=== PATIENT | male | born 1975 | race Caucasian/White ===

== ENCOUNTER 2016-10-01 07:51 | Emergency (ER) | payer OTHER ==
[2016-10-01 07:57] VITALS: BP 122/77; PULSE 97; RESP 15; TEMP 97.9
--- NOTE | 2016-10-01 08:26 | ED ---
General Adult HPI - General Chief complaint: Skin/Abscess/Foreign Body Stated complaint: SKIN CONDITION ON BACK AND INNER THIGHS, POSS RASH Time Seen by Provider: 10/01/16 08:10 Source: patient, RN notes reviewed Mode of arrival: ambulatory Limitations: no limitations - History of Present Illness Initial comments: Patient is a 41-year-old male who presents emergency room today with a chief complaint of rash. He does admit that he gets similar rash every winter and during summertime. Patient denies any contacts of soaps or laundry detergents. He states very itchy to his back and inner thighs. He states he typically takes a topical steroid cream which does relieve the symptoms. He denies any other complaints. States does not have any medications at home. Patient denies any recent fever, chills, shortness of breath, chest pain, back pain, abdominal pain, nausea or vomiting, numbness or tingling, dysuria or hematuria, constipation or diarrhea, headaches or visual changes, or any other complaints. - Related Data Home Medications Medication Instructions Recorded Confirmed Albuterol Inhaler [Ventolin Hfa 1 - 2 puff INHALATION Q6HR PRN 10/01/16 10/01/16 Inhaler] Albuterol Nebulized [Ventolin 2.5 mg INHALATION Q6H 10/01/16 10/01/16 Nebulized] Previous Rx's Medication Instructions Recorded Famotidine [Pepcid] 20 mg PO BID #20 tablet 10/01/16 Hydrocortisone Cream 1 applic TOPICAL TID #1 cream..g. 10/01/16 [Hydrocortisone 1% Cream] Permethrin 5% Cream [Elimite] 1 applic TOPICAL ONCE #1 tube 10/01/16 diphenhydrAMINE [Benadryl] 1 - 2 tab PO Q6HR PRN #30 capsule 10/01/16 Allergies Allergy/AdvReac Type Severity Reaction Status Date / Time onion Allergy Anaphylaxis Verified 10/01/16 07:57 Review of Systems ROS Statement: Those systems with pertinent positive or pertinent negative responses have been documented in the HPI. ROS Other: All systems not noted in ROS Statement are negative. Past Medical History Past Medical History: Asthma, Diabetes Mellitus, Skin Disorder History of Any Multi-Drug Resistant Organisms: None Reported Past Surgical History: Orthopedic Surgery Past Psychological History: No Psychological Hx Reported, Bipolar Smoking Status: Current every day smoker Past Alcohol Use History: Rare Past Drug Use History: None Reported General Exam - General Exam Comments Initial Comments: General: The patient is awake and alert, in no distress, and does not appear acutely ill. Eye: Pupils are equal, round and reactive to light, extra-ocular movements are intact. No nystagmus. There is normal conjunctiva bilaterally. No signs of icterus. Ears, nose, mouth and throat: There are moist mucous membranes and no oral lesions. Neck: The neck is supple, there is no tenderness or JVD. Cardiovascular: There is a regular rate and rhythm. No murmur, rub or gallop is appreciated. Respiratory: Lungs are clear to auscultation, respirations are non-labored, breath sounds are equal. No wheezes, stridor, rales, or rhonchi. Musculoskeletal: Normal ROM, no tenderness. Strength 5/5. Sensation intact. Pulses equal bilaterally 2+. Neurological: A&O x 3. CN II-XII intact, There are no obvious motor or sensory deficits. Coordination appears grossly intact. Speech is normal. Skin: Patient does have rash located to the inner thighs and lower back. Small red raised bumps excoriated from itching. Psychiatric: Cooperative, appropriate mood & affect, normal judgment. Limitations: no limitations Course Vital Signs 10/01/16 07:53 Temperature 97.9 F Pulse Rate 97 Respiratory 15 Rate Blood Pressure 122/77 O2 Sat by Pulse 94 L Oximetry Medical Decision Making - Medical Decision Making Was discussed about possible scabies. Patient will be given permethrin cream. He is advised used Benadryl, Pepcid, steroid cream for symptoms and there is really to continue with these. If no relief to use permethrin cream. Advised to follow up his family doctor return here to the emergency room if any symptoms increase or worsen or for any other concerns. Disposition Clinical Impression: Rash Disposition: HOME SELF-CARE Condition: Good Instructions: Acute Rash (ED) Additional Instructions: Please use medication as discussed. Please follow-up with family doctor in the next 2 days of symptoms have not improved. Please return to emergency room if the symptoms increase or worsen or for any other concerns. Prescriptions: Famotidine [Pepcid] 20 mg PO BID #20 tablet Hydrocortisone Cream [Hydrocortisone 1% Cream] 1 applic TOPICAL TID #1 cream..g. Permethrin 5% Cream [Elimite] 1 applic TOPICAL ONCE #1 tube diphenhydrAMINE [Benadryl] 1 - 2 tab PO Q6HR PRN #30 capsule PRN Reason: Allergic Reaction Time of Disposition: 08:24
== END 2016-10-01 08:45 | disposition home or self-care (01) ==
LOC: EC 07:51
DX: R21 Rash and other nonspecific skin eruption (principal); J45.909 Unspecified asthma, uncomplicated; F17.200 Nicotine dependence, unspecified, uncomplicated; Z79.899 Other long term (current) drug therapy; Z91.018 Allergy to other foods
CPT/HCPCS: 99282

== ENCOUNTER 2017-01-02 14:55 | Emergency (ER) | payer OTHER ==
[2017-01-02 15:06] VITALS: TEMP 98.3
[2017-01-02] MEDS ORDERED: SODIUM CHLORIDE 0.9% 1,000 ML IV STA ×2 (15:27)
--- NOTE | 2017-01-02 15:46 | ED ---
Psych HPI - General Chief Complaint: Psychiatric Symptoms Stated Complaint: Mental Health Time Seen by Provider: 01/02/17 15:00 Source: patient, RN notes reviewed Mode of arrival: ambulatory - History of Present Illness Initial Comments: This is a 41-year-old male with history depression who is here for evaluation for depression. He states he initially very depressed is up and eating or drinking for 6 days. He also states his blood sugars have been somewhat elevated. He denies any fevers chills nausea vomiting sweats. His other complaints. Patient also states that he has some chest discomfort to his lower sternum going to his upper abdomen. MD Complaint: feels depressed - Related Data Home Medications Medication Instructions Recorded Confirmed Albuterol Inhaler [Ventolin Hfa 1 - 2 puff INHALATION Q6HR PRN 10/01/16 01/02/17 Inhaler] Albuterol Nebulized [Ventolin 2.5 mg INHALATION Q6H 10/01/16 01/02/17 Nebulized] Sodium Chloride [[place]] 1 spray EA NOSTRIL DAILY PRN 01/02/17 01/02/17 Allergies Allergy/AdvReac Type Severity Reaction Status Date / Time onion Allergy Anaphylaxis Verified 01/02/17 15:30 Review of Systems ROS Statement: Those systems with pertinent positive or pertinent negative responses have been documented in the HPI. ROS Other: All systems not noted in ROS Statement are negative. Past Medical History Past Medical History: Asthma, Diabetes Mellitus, Skin Disorder History of Any Multi-Drug Resistant Organisms: None Reported Past Surgical History: Orthopedic Surgery Past Psychological History: No Psychological Hx Reported, Bipolar Smoking Status: Current every day smoker Past Alcohol Use History: Rare Past Drug Use History: None Reported General Exam - General Exam Comments Initial Comments: This is a well-developed well-nourished awake alert oriented 3 male Limitations: no limitations General appearance: alert, anxious Head exam: Present: atraumatic, normocephalic, normal inspection Eye exam: Present: normal appearance, PERRL, EOMI. Absent: scleral icterus, conjunctival injection, periorbital swelling ENT exam: Present: mucous membranes dry Neck exam: Present: normal inspection. Absent: tenderness, meningismus, lymphadenopathy Respiratory exam: Present: normal lung sounds bilaterally. Absent: respiratory distress, wheezes, rales, rhonchi, stridor Cardiovascular Exam: Present: regular rate, normal rhythm, normal heart sounds. Absent: systolic murmur, diastolic murmur, rubs, gallop, clicks GI/Abdominal exam: Present: soft, normal bowel sounds. Absent: distended, tenderness, guarding, rebound, rigid Extremities exam: Present: normal inspection, full ROM, normal capillary refill. Absent: tenderness, pedal edema, joint swelling, calf tenderness Back exam: Present: normal inspection Neurological exam: Present: alert, oriented X3, CN II-XII intact Psychiatric exam: Present: depressed, manic Skin exam: Present: warm, dry, intact, normal color. Absent: rash Course Vital Signs 01/02/17 01/02/17 15:02 17:42 Temperature 98.3 F 98.3 F Pulse Rate 106 H 60 Respiratory 18 20 Rate Blood Pressure 139/72 126/84 O2 Sat by Pulse 97 97 Oximetry Medical Decision Making - Medical Decision Making The patient did not want to wait any longer and wanted to leave did leave AGAINST MEDICAL ADVICE. He came in presents with depression but was not suicidal or homicidal. He was willing to accept responsibility for his exit. - Lab Data Result diagrams: 01/02/17 15:50 01/02/17 15:50 Lab Results 01/02/17 01/02/17 01/02/17 Range/Units 15:50 15:50 17:34 WBC 4.5 (3.8-10.6) k/uL RBC 5.12 (4.30-5.90) m/uL Hgb 16.5 (13.0-17.5) gm/dL Hct 47.6 (39.0-53.0) % MCV 93.1 (80.0-100.0) fL MCH 32.2 (25.0-35.0) pg MCHC 34.6 (31.0-37.0) g/dL RDW 13.4 (11.5-15.5) % Plt Count 202 (150-450) k/uL Neutrophils % 54 % Lymphocytes % 32 % Monocytes % 9 % Eosinophils % 2 % Basophils % 1 % Neutrophils # 2.4 (1.3-7.7) k/uL Lymphocytes # 1.4 (1.0-4.8) k/uL Monocytes # 0.4 (0-1.0) k/uL Eosinophils # 0.1 (0-0.7) k/uL Basophils # 0.0 (0-0.2) k/uL Sodium 142 (137-145) mmol/L Potassium 3.7 (3.5-5.1) mmol/L Chloride 107 (98-107) mmol/L Carbon Dioxide 23 (22-30) mmol/L Anion Gap 12 mmol/L BUN 13 (9-20) mg/dL Creatinine 1.22 (0.66-1.25) mg/dL Est GFR (MDRD) Af Amer >60 (>60 ml/min/1.73 sqM) Est GFR (MDRD) Non-Af >60 (>60 ml/min/1.73 sqM) Glucose 86 (74-99) mg/dL Calcium 8.7 (8.4-10.2) mg/dL Magnesium 2.5 H (1.6-2.3) mg/dL Total Bilirubin 0.9 (0.2-1.3) mg/dL AST 27 (17-59) U/L ALT 26 (21-72) U/L Alkaline Phosphatase 56 (38-126) U/L Total Protein 7.3 (6.3-8.2) g/dL Albumin 4.4 (3.5-5.0) g/dL Amylase 34 (30-110) U/L Lipase 106 (23-300) U/L Urine Opiates Screen Not Detected (NotDetected) Ur Oxycodone Screen Not Detected (NotDetected) Urine Methadone Screen Not Detected (NotDetected) Ur Propoxyphene Screen Not Detected (NotDetected) Ur Barbiturates Screen Not Detected (NotDetected) U Tricyclic Antidepress Not Detected (NotDetected) Ur Phencyclidine Scrn Not Detected (NotDetected) Ur Amphetamines Screen Not Detected (NotDetected) U Methamphetamines Scrn Not Detected (NotDetected) U Benzodiazepines Scrn Not Detected (NotDetected) Urine Cocaine Screen Not Detected (NotDetected) U Marijuana (THC) Screen Not Detected (NotDetected) Disposition Clinical Impression: Depression Disposition: Left Against Medical Advice Condition: Stable Referrals: Daniel Esquivel MD [Primary Care Provider] - 1-2 days
[2017-01-02 16:09] LABS: Basophils % (A) 1 %; CH 33.6; CHCM 36.3; Eosinophils # (A) 0.1 k/uL (0-0.7); Eosinophils % (A) 2 %; HCT 47.6 % (39.0-53.0); HDW 2.77; HGB 16.5 gm/dL (13.0-17.5); Luc % (Auto) 2; Lymphocytes # (A) 1.4 k/uL (1.0-4.8); Lymphocytes % (A) 32 %; MCH 32.2 pg (25.0-35.0); MCHC 34.6 g/dL (31.0-37.0); MCV 93.1 fL (80.0-100.0); Mean Platelet Volume 7.4; Monocytes # (A) 0.4 k/uL (0-1.0); Monocytes % (A) 9 %; Neutrophils # (A) 2.4 k/uL (1.3-7.7); Neutrophils % (A) 54 %; RBC 5.12 m/uL (4.30-5.90); RDW 13.4 % (11.5-15.5); WBC 4.5 k/uL (3.8-10.6); WBC (Perox) 4.33
[2017-01-02 16:32] LABS: ALT 26 U/L (21-72); AST 27 U/L (17-59); Alkaline Phosphatase 56 U/L (38-126); Amylase 34 U/L (30-110); Anion Gap 12 mmol/L; Blood Urea Nitrogen 13 mg/dL (9-20); Calcium 8.7 mg/dL (8.4-10.2); Carbon Dioxide 23 mmol/L (22-30); Chloride 107 mmol/L (98-107); Glucose 86 mg/dL (74-99); Magnesium 2.5 mg/dL (1.6-2.3); Non-African American GFR(MDRD) >60 (>60 ml/min/1.73 sqM); Potassium 3.7 mmol/L (3.5-5.1); Sodium 142 mmol/L (137-145); Total Bilirubin 0.9 mg/dL (0.2-1.3); Total Protein 7.3 g/dL (6.3-8.2)
[2017-01-02 17:43] VITALS: BP 126/84; PULSE 60; RESP 20
== END 2017-01-02 18:30 | disposition left against medical advice (07) ==
LOC: EC 14:55
DX: F32.9 Major depressive disorder, single episode, unspecified (principal); J45.909 Unspecified asthma, uncomplicated; F17.200 Nicotine dependence, unspecified, uncomplicated; Z53.29 Procedure and treatment not carried out because of patient's decision for other reasons; Z91.018 Allergy to other foods; Z79.899 Other long term (current) drug therapy
CPT/HCPCS: 36415; 80053; 80306; 82075; 82150; 83690; 83735; 85025; 96360; 96361; 99285

== ENCOUNTER 2017-01-02 21:34 | Inpatient (IN) | payer MEDICAID, OTHER ==
--- NOTE | 2017-01-02 23:02 | ED ---
Psych HPI - General Chief Complaint: Psychiatric Symptoms Stated Complaint: Mental Health Time Seen by Provider: 01/02/17 22:38 Source: patient Mode of arrival: ambulatory - History of Present Illness MD Complaint: feels depressed -: month(s) Associated Psychiatric Symptoms: none History of same: Yes Quality: constant Improves With: none Worsens With: none Context: significant life stressor - Related Data Home Medications Medication Instructions Recorded Confirmed Albuterol Inhaler [Ventolin Hfa 1 - 2 puff INHALATION RT-Q6H PRN 10/01/16 Inhaler] Albuterol Nebulized [Ventolin 2.5 mg INHALATION RT-Q6H 10/01/16 01/02/17 Nebulized] Sodium Chloride [[place]] 1 spray EA NOSTRIL DAILY PRN 01/02/17 01/02/17 Allergies Allergy/AdvReac Type Severity Reaction Status Date / Time onion Allergy Anaphylaxis Verified 01/02/17 22:37 Review of Systems ROS Statement: Those systems with pertinent positive or pertinent negative responses have been documented in the HPI. ROS Other: All systems not noted in ROS Statement are negative. Constitutional: Denies: fever Respiratory: Denies: cough, dyspnea Cardiovascular: Denies: chest pain, syncope Gastrointestinal: Denies: abdominal pain, vomiting, diarrhea Musculoskeletal: Denies: back pain Neurological: Denies: headache, weakness, numbness Past Medical History Past Medical History: Asthma, Diabetes Mellitus, Skin Disorder History of Any Multi-Drug Resistant Organisms: None Reported Past Surgical History: Orthopedic Surgery Past Psychological History: No Psychological Hx Reported, Bipolar Smoking Status: Current every day smoker Past Alcohol Use History: Rare Past Drug Use History: None Reported General Exam Limitations: no limitations General appearance: alert, in no apparent distress, anxious Head exam: Present: atraumatic, normocephalic ENT exam: Present: normal oropharynx Respiratory exam: Present: normal lung sounds bilaterally. Absent: respiratory distress, wheezes, rales, rhonchi, stridor Cardiovascular Exam: Present: regular rate, normal rhythm, normal heart sounds. Absent: systolic murmur, diastolic murmur, rubs, gallop GI/Abdominal exam: Present: soft. Absent: tenderness Neurological exam: Present: alert Psychiatric exam: Present: normal affect, anxious. Absent: homicidal ideation, suicidal ideation Skin exam: Present: warm, dry, intact, normal color Course Vital Signs 01/02/17 01/03/17 21:41 01:50 Temperature 97.9 F 98.2 F Pulse Rate 93 79 Respiratory 16 17 Rate Blood Pressure 115/70 120/64 O2 Sat by Pulse 95 96 Oximetry Medical Decision Making - Medical Decision Making Is a 41-year-old man who was seen here earlier for depressed mood, and then who had to leave due to a family emergency. The patient states that when he got home he was served divorce papers which has made his mood worse, and he is afraid he might hurt someone at home. Patient denies any auditory or visual hallucinations. He denies suicidal ideation. Disposition Clinical Impression: Mood disorder Disposition: ADMITTED IP TO THIS [facility] Condition: Fair
[2017-01-03] MEDS ORDERED: ACETAMINOPHEN TAB 325 MG TAB PO PRN (01:46)
[2017-01-03] MEDS ORDERED: MAG HYDROX/AL HYDROX/SIMETH 30 ML CUP PO PRN (01:46)
[2017-01-03] MEDS ORDERED: ZIPRASIDONE 20 MG VIAL IM PRN (01:46)
[2017-01-03] MEDS ORDERED: MAGNESIUM HYDROXIDE 2,400 MG/10 ML CUP PO PRN (01:46)
[2017-01-03 02:11] LABS: Appearance,Urine Clear (Clear); Bilirubin,Urine Negative (Negative); Glucose,Urine (UA) Negative (Negative); Ketones,Urine 3+ (Negative); Leukocyte Esterase,Urine Negative (Negative); Mucus,Urine Many /hpf; Nitrite,Urine Negative (Negative); Particle Count 6429; Protein,Urine 1+ (Negative); Specific Gravity,Urine 1.027 (1.001-1.035); UA Billing (MACRO vs. MICRO) MICRO; WBC,Urine 1 /hpf (0-5)
[2017-01-03] MEDS: ALBUTEROL INHALER 60 PUFF/8 GM INHALER INHALATION PRN ×4 (02:58→21:38)
[2017-01-03] MEDS: ALBUTEROL NEBULIZED 2.5 MG/3 ML INHALATION SCH ×3 (08:15→21:54)
--- NOTE | 2017-01-03 09:16 | P.HP ---
Psychiatric H&P - . H&P Date: 01/03/17 History & Physical: Allergies Allergy/AdvReac Type Severity Reaction Status Date / Time onion Allergy Anaphylaxis Verified 01/03/17 05:32 Vital Signs Temp 97.5 F L 01/03/17 02:59 Pulse 91 01/03/17 02:59 Resp 18 01/03/17 02:59 BP 119/75 01/03/17 02:59 Pulse Ox 96 01/03/17 02:59 Intake & Output 01/02/17 01/03/17 01/03/17 18:59 06:59 18:59 Weight 80.3 kg Laboratory Last Values Urine Color Yellow 01/03/17 01:32 Urine Appearance Clear (Clear) 01/03/17 01:32 Urine pH 6.0 (5.0-8.0) 01/03/17 01:32 Ur Specific [place] 1.027 (1.001-1.035) 01/03/17 01:32 Urine Protein 1+ (Negative) H 01/03/17 01:32 Urine Glucose (UA) Negative (Negative) 01/03/17 01:32 Urine Ketones 3+ (Negative) H 01/03/17 01:32 Urine Blood Negative (Negative) 01/03/17 01:32 Urine Nitrite Negative (Negative) 01/03/17 01:32 Urine Bilirubin Negative (Negative) 01/03/17 01:32 Urine Urobilinogen 2.0 mg/dL (<2.0) 01/03/17 01:32 Ur Leukocyte Esterase Negative (Negative) 01/03/17 01:32 Urine WBC 1 /hpf (0-5) 01/03/17 01:32 Hyaline Casts 1 /lpf (0-2) 01/03/17 01:32 Urine Mucus Many /hpf (None) H 01/03/17 01:32 01/03/17 08:40 DATE OF SERVICE: 01/03/2017 IDENTIFYING DATA: This patient is a 41-year-old male who was admitted to the mental health unit through ED for thoughts of hurting himself or others. HISTORY OF PRESENT ILLNESS: The patient reports that he was in the emergency room earlier in the day for dehydration states he was receiving an IV, but he had not eaten for 6 days today is a 7. States he received a text that there was an emergency that he had go home.Left the emergency room AMA, when he arrived home he received papers for divorce. He then left the house and reportedly his was a few blocks away and told him he needed to find another place to live and that she would come with him. Patient states that he was confused by this but has since been in communication with her and believes that she is being forced into a divorce by Gene. Patient reports that he and his moved up to be close to his mother, he contacted a friend who said he could rent a room from them which they did. Everything was fine until the shellfish harvester of the house allowed her brother(Doroteo) to move in and that's when the problems began. Patient says that Gene is buying his objects like a phone, a braid maker and that is why his agreed to the divorce proceedings. Patient reports that he has been depressed for approximately 2-3 weeks sitting in the room in the dark not eating for the last week. Patient reports that he has not been able to get back into treatment, no treatment in [place], he had no insurance so has been off of his medications for over 6 months. No psychiatric hospitalization during this time. Patient denies suicidal ideation, but reports he would like to go in and do some harm to Annie. He states he knows that that would be wrong and that he would go to care home for that. States that Aaron the shellfish harvester's has said that he can come back to the house until the first of the month. Patient states that he is now looking for another place to rent. Patient denies hearing voices, has not had episodes of jeet for some time, has not had any problems for the last 6 months not being on medication, the only medication he was on was Lamictal. Patient denies suicidal ideation, has future oriented planning i.e. looking for a new place to live.. PAST PSYCHIATRIC HISTORY: Reports he has 18 admission to this hospital, Dr Dorsey treated him, has dx of bipolar depressed with suicidal. Lamictal was last medicine. PAST MEDICAL HISTORY: DM, . ALLERGIES: Onions. CHEMICAL DEPENDENCY HISTORY: denies current use of drugs of abuse, will have a beer once in awhile. FAMILY PSYCHIATRIC HISTORY: patient states he does not know. FAMILY CHEMICAL DEPENDENCY HISTORY:denies. LEGAL HISTORY: denies. SOCIAL HISTORY: Born in [place], raised by parents, 5 brothers patient is second eldest, fair childhood, father was never around, father verbally abusive, no physical or sexual abuse. Graduated from [employer]. Says he is receiving SSI due to a back problem, diabetes, and other issues. 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 x 1 for 8 years, no children from current relationship. 22 yo son from another relationship, he is doing well, joining the [employer]. MENTAL STATUS EXAM: Patient alert and oriented 3, good eye contact, fair groomed in hospital attire.. Speech normal volume, rate and production. No pressured speech. Coherent, logical and goal directed thought process. No SHANNON, no FOI. No TB/TW/ TI Denied auditory and visual hallucinations. Denied paranoid ideation, delusions or IOR. Memory /intact Cognition average Mood irritable, affect full range decreased intensity, congruent with mood. Denies suicidal ideation, reports thoughts of harming Gene, no plan or intent Insight nil; Judgment grossly intact for treatment purposes . STRENGTHS: Has income from [employer]. WEAKNESSES: Poor coping skills. IMPRESSIONS: 41-year-old male admitted last evening after he was served divorce papers. He reported that he wasn't sure what he would do if he were to return home and leaving it up to the examining nurse for possible suicidal or homicidal ideation. Today patient is not suicidal. He is reporting that he is mad at Gene, and although he initially said he could go back and blow them all he used his fist to demonstrate that he would hurt Gene. He understands that if he attacks anyone that he would be arrested and charged and that he is competent to stand trial. Patient verbalized understanding of this. He is not displaying any depressive symptoms, he is angry and irritable at the situation. He has been off of medications (Lamictal) for over 6 months while he was in [place] and having no insurance and no Medicaid. He is now back in [place] and says he has Medicaid. No suggestion of psychosis. No immediate danger to self/others Bipolar disorder, unspecified Marital discord Homeless PLAN: Patient to remain hospitalized for safety. Suicide checks every 15 minutes Labs pending. Hospitalist to manage medical conditions. Start lithium. Gather information from [facility]. Social work to plan a family meeting, whether with his or with his parents. Duty to warn does not appear indicated. LOS 3-4 days
[2017-01-03] MEDS: NICOTINE 14MG/24HR PATCH TRANSDERM SCH (09:34)
--- NOTE | 2017-01-03 20:06 | CONS ---
DATE OF CONSULTATION: REASON FOR CONSULTATION: Medical clearance. The patient is a 41 -year-old admitted for severe depression, bipolar disorder. The patient is on the psychiatric floor for that and the patient denied any fever, chills, nausea or vomiting, abdominal pain. The patient although at one point in time was diagnosed with ( ) and the patient is ( ) although the patient does not have any ( ) patient does not look like he is taking any ( ) or any beta whitney although the patient states he was on beta whitney and clonidine in the past. He was told, patient was apparently was evaluated by an industrial nurse. There was another second industrial nurse who evaluated the patient for ( ) and that evaluation can be done as an outpatient. No further intervention is necessary at this point in time. The patient blood pressure essentially within normal limits. The patient denied any fever or chills. REVIEW OF SYSTEMS: CONSTITUTIONAL: No fever, no malaise, no fatigue. HEENT: No recent visual problems or hearing problems. Denied any sore throat. CARDIOVASCULAR: No chest pain, orthopnea, PND, no palpitations, no syncope. PULMONARY: No shortness of breath, no cough, no hemoptysis. GASTROINTESTINAL: No diarrhea, no nausea, no vomiting, no abdominal pain. Normoactive bowel sounds. NEUROLOGICAL: No headaches, no weakness, no numbness. HEMATOLOGICAL: Denies any bleeding or petechiae. GENITOURINARY: Denies any burning micturition, frequency, or urgency. MUSCULOSKELETAL/RHEUMATOLOGICAL: Denies any joint pain, swelling, or any muscle pain. ENDOCRINE: Denies any polyuria or polydipsia. Psychiatric: Deferred to primary service. The rest of the 14 point review of systems is negative. PAST MEDICAL HISTORY: Asthma. Patient says he has not been taking any medications for that and questionable history of pheochromocytoma. SOCIAL HISTORY: Patient continues to smoke. Denied any alcohol abuse or drug abuse. FAMILY HISTORY: Significant for psychiatric problems in the family. PHYSICAL EXAMINATION: VITAL SIGNS: Temperature 97.9, pulse of 93, respiratory rate of 16, blood pressure 120/64. Saturating at 96% on room air. GENERAL: The patient is alert and oriented x3, not in any acute distress. Well developed, well nourished. HEENT: Pupils are round and equally reacting to light. EOMI. No scleral icterus. No conjunctival pallor. Normocephalic, atraumatic. No pharyngeal erythema. No thyromegaly. CARDIOVASCULAR: S1 and S2 present. No murmurs, rubs, or gallops. PULMONARY: Chest is clear to auscultation, no wheezing or crackles. ABDOMEN: Soft, nontender, nondistended, normoactive bowel sounds. No palpable organomegaly. MUSCULOSKELETAL: No joint swelling or deformity. EXTREMITIES: No cyanosis, clubbing, or pedal edema. NEUROLOGICAL: Gross neurological examination did not reveal any focal deficits. SKIN: No rashes. Home medications include: Albuterol. Laboratory nothing available at this point of time. ASSESSMENT AND PLAN: 1. Severe depression and bipolar disorder, management as per primary service. Patient may have ( ) disorder as well. 2. Questionable history of pheochromacytoma, further evaluation may be done as an outpatient. Patient does not have ( ) issues at this point in time. 3. Asthma without any acute exacerbation, albuterol can be continued. 4. Rule out diabetes mellitus as the patient has history of that. I do not have any blood sugars available. We will obtain a hemoglobin A1C. Thank you for letting me participate in this patient's care. We will sign off at this point of time. Please call us back if needed.
[2017-01-03] MEDS ORDERED: LITHIUM CARBONATE 150 MG CAP PO SCH (21:00)
[2017-01-03 21:40] LABS: Hemoglobin A1C 5.1 % (4.2-6.1)
[2017-01-04] MEDS: ALBUTEROL INHALER 60 PUFF/8 GM INHALER INHALATION PRN ×3 (06:59→20:14)
[2017-01-04] MEDS: ALBUTEROL NEBULIZED 2.5 MG/3 ML INHALATION SCH ×4 (07:00→20:02)
[2017-01-04] MEDS: NICOTINE 14MG/24HR PATCH TRANSDERM SCH (08:56)
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
[2017-01-04] MEDS: lamoTRIgine 25 MG TAB PO SCH (20:54)
[2017-01-04] MEDS: LITHIUM CARBONATE 150 MG CAP PO SCH (20:54)
[2017-01-04] MEDS ORDERED: traZODone HCL 50 MG TAB PO SCH (21:00)
[2017-01-05] MEDS: ALBUTEROL NEBULIZED 2.5 MG/3 ML INHALATION SCH ×4 (07:50→20:39)
[2017-01-05] MEDS: NICOTINE 14MG/24HR PATCH TRANSDERM SCH (09:26)
--- NOTE | 2017-01-05 12:38 | P.PN ---
Progress Note - Text INTERVERAL HISTORY: Discussed patient at team treatment meeting, review of chart , and met with patient. Patient is noted to be bright and cheerful at times dramatic in his groups. Staff member states that the patient said he wants a new doctor because I want to try to get a hold of his /people he shares the house with, and he will not give us that information. His brought him clothing last night but declined to come in to visit. Patient states "even the staff saw how frightened she was". Staff member who did meet with the to take the clothing states she was not appearing frightened nor was she shaking as the patient alleges. Patient initially pleasant. When discussing discharge plans he became upset stating "I can't go until I have my apartment on the first" he then began to state that he is suicidal homicidal and that he'll go to the switching operator to be brought back here. Again stated that he could not leave because he doesn't have a place to live until the first of the month, suggested the social work would help him find a mcc, he stated "I can't go there I've been red lined". Patient offers to give me his phone to show that he is being harassed by the people at the house. Reiterated that I would be happy to call his or to call Aaron who he has mentioned in the past was the reasonable person in the house. Patient then states he wants a new doctor. MENTAL STATUS EXAM: Patient alert and oriented 3, good eye contact, well groomed in street clothing. Speech normal volume, rate and production. No pressured speech. Coherent, logical and goal directed thought process. No SHANNON, no FOI. No TB/TW/ TI Denied auditory and visual hallucinations. Denied paranoid ideation, delusions or IOR. Memory intact Cognition average Mood initially neutral became irritable, affect full range decreased intensity, congruent with mood. Now reports suicidal ideation, and instead of reports of wanting to harm those at his house he is reporting they want to harm him Insight nil; Judgment grossly intact for treatment purposes . IMPRESSIONS: 41-year-old male admitted after being served divorce papers. No contact has been made with his /roommates as he refuses. On admission he reported that he wasn't sure what he would do if he were to return home, suggesting he would harm roommates or himself. He has been attending groups, he is brigher, cheerful, talking, interacting with staff and other patients. No evidence of depression, no jeet, no hypomania. After informing of possible discharge tomorrow he then reported suicidal ideation, no longer reporting homicidal ideation. He reveals he does not want to leave until January 14, when he can get his apartment. No suggestion of psychosis. No immediate danger to self/others Bipolar disorder, unspecified Marital discord Homeless PLAN: Patient to remain hospitalized for safety. Suicide checks every 15 minutes Hospitalist to manage medical conditions, appreciate. Continue lithium, lamictal, increase trazodone 100mg hs. SW to address mcc situation, consider discharge tomorrow. Discharge planning, SW will connect his with [facility].
[2017-01-05] MEDS ORDERED: traZODone HCL 100 MG TAB PO SCH (12:39)
[2017-01-05] MEDS: LITHIUM CARBONATE 150 MG CAP PO SCH (20:01)
[2017-01-05] MEDS: lamoTRIgine 25 MG TAB PO SCH (20:01)
[2017-01-05] MEDS: ALBUTEROL INHALER 60 PUFF/8 GM INHALER INHALATION PRN (20:38)
[2017-01-06 06:47] VITALS: BP 100/52; PULSE 77; RESP 16; TEMP 97.8
--- NOTE | 2017-01-06 09:06 | P.DS ---
Providers Date of admission: 01/03/17 01:40 Attending physician: Opal Sharpe MD Consults: 01/03/17 01:46 Consult Physician Routine Consulting Provider: William Mcknight Consult Reason/Comments: For H & P for Medical Follow Up Do you want consulting provider notified?: Yes, Notify in am Primary care physician: Sierra Sanchez [facility] Course: ADMISSION HISTORY: Patient was seen in the emergency room on January 02 twice by emergency room physicians. The first time he left AMA saying he had an emergency at home. He returned back saying that he had been served divorce papers. At both of those visits he told the physicians that he was depressed and at both of those episodes of care he DENIED suicidal ideation, and did NOT report homicidal ideation. Only after he saw the nurse did he suggest that he might do something to harm somebody or possibly himself. He was admitted. HOSPITAL COURSE: Patient reported to us that he had been away from [facility] for 6 months, in [place], no treatment while there due to not having insurance/medicaid. He just returned that he and his were living with a friend. That this friend then allowed her brother to move in and the dynamics in the house began to deteriorate. He he then stated that his served him divorce papers. Patient was noted to be interactive, appropriate, euthymic in all of his groups as well as his interaction with staff. However when meeting with the card writer hand he would exaggerate his symptoms of depression, stating that he wasn't eating, or that he was isolating in his room contrdicting staffs observations. He inform medical social consultant that he has been able to locate an apartment. The apartment is going to be ready the first of next month. In the meeting yesterday, discharge planning was discussed, with plan to discharge today patient became angry, shouting "I can't go until I have my apartment on the first" he then began to state that he is suicidal/homicidal and that he'll go to the electric brain wave equipment mechanic to be brought back here. Stated that he could not leave because he doesn't have a place to live until the first of the month, suggested the social work would help him find a residential, he stated "I can't go there I've been red lined". Patient offers to give me his phone to show that he is being harassed by the people at the house. Reiterated that I would be happy to call his or to call Aaron who he has mentioned in the past was the reasonable person in the house. Patient then states he wants a new doctor, that his apartment isn't going to be ready until the first and that we can't discharge him until then, because he suicidal, homicidal, and that the people at the house that he was living in are now threatening him. Patient refused to speak to card writer hand today. Patient advocate Ravindra, reports patient called his oyster preparer who told him he cannot be legally discharged w/o a place to go. Pt Advocate was informed patient has been given residential information and it will be patient's choice to not go there. He can also go to his mother's house. IMPRESSIONS: 41-year-old male admitted after a report of being served [place] papers. He was seen twice on the same day both physicians documented clearly that he denied suicidal ideation. Then when he was seen by EPS he suggested that he might do something. He has been on our unit now for 3 days his behavior has been noted to be cheerful bright and all of the groups, but when seen by card writer hand he insists that he is either suicidal homicidal or that he is being threatened by those people at his home. He has been unwilling to let us contact any of them to try to verify his report of history. He reports that he has a diagnosis of bipolar disorder, and reports being depressed but there has been no display of those problems while here. He has already secured an apartment that we'll begin on the first of next month, and he has expected to remain here until then. We explained that that is not why he was admitted he was admitted for report of depression, and it is clear he is not experiencing depression, that this is a social economic issue for him. When offered a residential patient then reported he is red lined from the only residential here in the city because worked there medical social consultant states it's very unlikely that he would be prohibited from going to the residential because of working there, that more than likely there was some behavior that he engaged in that has caused him to not be allowed their. She states there is another residential in the city that he could go to. Patient also reported to us that he had been gone for 6 months and only recently returned that he had not been receiving any treatment for his mental illness, but it is noted in the chart that he was here in September and at that time there was no mental health issues reported. Patient is not psychotic, patient is not depressed, no jeet, no hypomania, he vacillates between suicidal/homicidal ideation. In groups however he is bright and cheerful and no evidence of any mood/affective disorder, thought disorder. He has future plans. He is stable to be treated in outpatient. No suggestion of psychosis, affective disorder No immediate danger to self/others ADMISSION DIAGNOSES: Bipolar disorder, unspecified Marital discord Homeless DISCHARGE DIAGNOSES: Malingering Homeless Marital discord Self report of Bipolar DO PLAN: Discharge today, Will give 7 day supply of medication, has not been on medication for over 6 months possibly longer Continue lithium, lamictal, increase trazodone 100mg hs. SW to address residential situation Pertinent Studies: none Procedures: none Plan - Discharge Summary New Discharge Prescriptions: New lamoTRIgine [LaMICtal] 25 mg PO HS #7 tab traZODone HCL [Desyrel] 100 mg PO HS #7 tab Continue Albuterol Nebulized [Ventolin Nebulized] 2.5 mg INHALATION RT-Q6H Albuterol Inhaler [Ventolin Hfa Inhaler] 1 - 2 puff INHALATION RT-Q6H PRN PRN Reason: Shortness Of Breath Sodium Chloride [[place]] 1 spray EA NOSTRIL DAILY PRN PRN Reason: Nasal Congestion Discharge Medication List Albuterol Inhaler [Ventolin Hfa Inhaler] 1 - 2 puff INHALATION RT-Q6H PRN [History] Albuterol Nebulized [Ventolin Nebulized] 2.5 mg INHALATION RT-Q6H 10/01/16 [ History] Sodium Chloride [[place]] 1 spray EA NOSTRIL DAILY PRN 01/02/17 [History] lamoTRIgine [LaMICtal] 25 mg PO HS #7 tab 01/06/17 [Rx] traZODone HCL [Desyrel] 100 mg PO HS #7 tab 01/06/17 [Rx] Follow up Appointment(s)/Referral(s): Daniel Esquivel MD [Primary Care Provider] - 1-2 days
[2017-01-06] MEDS: ALBUTEROL INHALER 60 PUFF/8 GM INHALER INHALATION PRN (09:18)
[2017-01-06] MEDS: NICOTINE 14MG/24HR PATCH TRANSDERM SCH (09:24)
== END 2017-01-06 11:45 | disposition home or self-care (01) | DRG 885 ==
LOC: EC 21:34 → 3MHU 01-03 01:40
PROVIDERS: ADMIT Psychiatry & Neurology Addiction Medicine; ATTEND Psychiatry & Neurology Addiction Medicine
DX: F31.9 Bipolar disorder, unspecified (principal); R45.851 Suicidal ideations; E11.9 Type 2 diabetes mellitus without complications; F17.200 Nicotine dependence, unspecified, uncomplicated; J45.909 Unspecified asthma, uncomplicated; Z76.5 Malingerer [conscious simulation]; Z59.0 Homelessness; Z63.5 Disruption of family by separation and divorce
CPT/HCPCS: 81001; 82075; 83036; 84443; 94640; 99284

== ENCOUNTER 2017-01-06 18:56 | Inpatient (IN) | payer MEDICAID, OTHER ==
--- NOTE | 2017-01-06 19:54 | ED ---
Psych HPI - General Chief Complaint: Psychiatric Symptoms Stated Complaint: suicidal-revisit Time Seen by Provider: 01/06/17 19:17 Source: patient Mode of arrival: ambulatory - History of Present Illness Initial Comments: This patient is a 41-year-old man with history of depression and recent suicidal ideation. He states that he was released from the mental health unit here this morning. The patient had a phone call with his parents and described that he was still feeling significantly depressed about his brothers and also about recently being served with divorce papers. He had talked with his parents about some suicidal ideation. His parents then told that he had to go back to the hospital, or they would call an ambulance or police and have him brought here. MD Complaint: feels depressed -: week(s) Associated Psychiatric Symptoms: depression, suicidal ideation History of same: Yes Quality: constant Improves With: none Worsens With: none Context: significant life stressor Associated Symptoms: denies other symptoms - Related Data Home Medications Medication Instructions Recorded Confirmed Albuterol Inhaler [Ventolin Hfa 1 - 2 puff INHALATION RT-Q6H PRN 10/01/16 Inhaler] Albuterol Nebulized [Ventolin 2.5 mg INHALATION RT-Q6H 10/01/16 01/06/17 Nebulized] Sodium Chloride [[place]] 1 spray EA NOSTRIL DAILY PRN 01/02/17 01/06/17 Previous Rx's Medication Instructions Recorded lamoTRIgine [LaMICtal] 25 mg PO HS #7 tab 01/06/17 traZODone HCL [Desyrel] 100 mg PO HS #7 tab 01/06/17 Allergies Allergy/AdvReac Type Severity Reaction Status Date / Time onion Allergy Anaphylaxis Verified 01/06/17 19:56 Review of Systems ROS Statement: Those systems with pertinent positive or pertinent negative responses have been documented in the HPI. ROS Other: All systems not noted in ROS Statement are negative. Constitutional: Denies: fever, weakness Respiratory: Denies: cough, dyspnea Cardiovascular: Denies: chest pain, palpitations, syncope Gastrointestinal: Denies: abdominal pain, vomiting Skin: Denies: rash Neurological: Denies: headache, weakness, numbness Psychiatric: Reports: depression, suicidal thoughts. Denies: auditory hallucinations, visual hallucinations, homicidal thoughts Past Medical History Past Medical History: Asthma, Diabetes Mellitus, Skin Disorder History of Any Multi-Drug Resistant Organisms: None Reported Past Surgical History: Orthopedic Surgery Additional Past Surgical History / Comment(s): finger Past Psychological History: No Psychological Hx Reported, Bipolar Smoking Status: Current every day smoker Past Alcohol Use History: Rare Past Drug Use History: None Reported General Exam Limitations: no limitations General appearance: alert, in no apparent distress Head exam: Present: atraumatic Respiratory exam: Present: normal lung sounds bilaterally. Absent: respiratory distress, wheezes, rales, rhonchi, stridor Cardiovascular Exam: Present: regular rate, normal rhythm, normal heart sounds. Absent: systolic murmur, diastolic murmur, rubs, gallop GI/Abdominal exam: Present: soft. Absent: distended, tenderness, guarding, rebound, mass Neurological exam: Present: alert, normal gait Psychiatric exam: Present: normal affect. Absent: depressed, agitated, anxious , flat affect, manic, homicidal ideation, suicidal ideation Skin exam: Present: warm, dry, intact, normal color. Absent: rash Course Vital Signs 01/06/17 19:05 Temperature 98.5 F Pulse Rate 101 H Respiratory 18 Rate Blood Pressure 147/78 O2 Sat by Pulse 96 Oximetry Medical Decision Making - Medical Decision Making Patient is seen by behavioral health and the psychiatrist will admit the patient for further evaluation and treatment. Disposition Clinical Impression: Mood disorder Disposition: ADMITTED IP TO THIS [facility] Condition: Fair
[2017-01-06] MEDS ORDERED: ZIPRASIDONE 20 MG VIAL IM PRN (23:44)
[2017-01-06] MEDS ORDERED: MAG HYDROX/AL HYDROX/SIMETH 30 ML CUP PO PRN (23:44)
[2017-01-06] MEDS ORDERED: ACETAMINOPHEN TAB 325 MG TAB PO PRN (23:44)
[2017-01-06] MEDS ORDERED: MAGNESIUM HYDROXIDE 2,400 MG/10 ML CUP PO PRN (23:44)
[2017-01-07 00:37] VITALS: BMI 22.0
[2017-01-07] MEDS: NICOTINE 14MG/24HR PATCH TRANSDERM SCH (08:47)
[2017-01-07] MEDS ORDERED: ALBUTEROL INHALER 60 PUFF/8 GM INHALER INHALATION PRN (09:39)
[2017-01-07] MEDS: ALBUTEROL NEBULIZED 2.5 MG/3 ML INHALATION SCH ×2 (10:01→20:12)
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
[2017-01-07] MEDS: lamoTRIgine 25 MG TAB PO SCH ×2 (10:40→21:17)
--- NOTE | 2017-01-07 20:29 | CONS ---
REASON FOR CONSULTATION: Medical management of diabetes mellitus and asthma. HISTORY OF PRESENT ILLNESS: Mr. Condon is a 41-year-old male with a known history of depression/bipolar disorder, diet-controlled diabetes mellitus and asthma as well as nicotine addiction admitted to the hospital for suicidal ideation. Patient states that he was recently released from a mental health unit yesterday and patient had a phone call with his parents and described that he was still feeling significantly depressed about his brother's and also about recently being served with divorce papers. He had talked with his parents about suicidal ideation and his parents urged him to go back to the hospital. Patient presented to the ER with suicidal ideation. Denied any specific plan. Denied any fever or chills. No recent illnesses. No complaints of chest pain or shortness of breath. No nausea or vomiting, abdominal pain. Patient does have a history of diabetes mellitus which is diet-controlled. He does smoke about a 1 pack per day. No recent illnesses, sick contacts or recent travel. REVIEW OF SYSTEMS: CONSTITUTIONAL: No fever. No chills. No weakness. RESPIRATORY: No cough or sputum production. CARDIOVASCULAR: No chest pain or short of breath. ABDOMEN: No nausea, vomiting or abdominal pain. GENITOURINARY: Negative. ENDOCRINE: Negative. PSYCHIATRIC: Depressed. SKIN: Negative. All other 14-point review of systems negative except as above. PAST MEDICAL HISTORY: Bipolar disorder, diet-controlled diabetes mellitus and asthma. PAST SURGICAL HISTORY: Orthopedic surgery, sinus surgery. SOCIAL HISTORY: Patient is currently an everyday smoker, smokes about 1 pack per day. Denied any alcohol. Denied any marijuana. Denied any drugs or IVDU. FAMILY HISTORY: Denied any history of hypertension, diabetes mellitus or premature heart disease in the family. ALLERGIES: ONION. Home medications include: 1. Albuterol nebulization ( ). 2. Albuterol inhaler. 3. Lamictal. 4. Trazodone. PHYSICAL EXAMINATION: A 41-year-old male lying in the bed comfortably; awake, alert, oriented x3, appears to be in no apparent distress. VITALS: Blood pressure is 125/71, pulse is 82, respiratory rate 16, temperature afebrile, pulse ox 99% on room air. HEENT: Atraumatic, normocephalic. NECK: Supple. No JVD. CVS: S1, S2 heard. No murmurs, gallop or rub. LUNGS: Bilateral air entry is present. No wheezing. No crackles. Nonlabored breathing. ABDOMEN: Soft, nontender. Bowel sounds are present. CRYPTOLOGIC SUPPORT SPECIALIST: Awake, alert, oriented x3. No focal deficit. EXTREMITIES: No edema. Pulses palpable bilaterally. No clubbing or cyanosis. PSYCHIATRIC: Cooperative. Feels depressed. IMPRESSION: 1. Major depression with suicidal ideation. Patient currently on Lamictal and Seroquel and Geodon as per Psychiatry recommendations. 2. History of diet-controlled diabetes mellitus. Recent HbA1c is 5.1. 3. Asthma, stable now. Continue with albuterol inhaler as needed. 4. Questionable history of pheochromocytoma. Currently, blood pressure is well controlled and outpatient workup after following with the primary care physician is recommended. 5. Deep venous thrombosis prophylaxis with early ambulation. DISCUSSION AND PLAN: Patient will be continued on psychiatric medications as per Psychiatry followup. Patient will be continued on diabetic diet. Blood pressure is stable now. Will continue the albuterol inhaler as needed and further recommendations based on the clinical course. Thank you for your consult.
[2017-01-07] MEDS: QUEtiapine 50 MG TAB PO SCH (21:17)
[2017-01-07] MEDS ORDERED: ALBUTEROL NEBULIZED 2.5 MG/3 ML INHALATION PRN (21:41)
[2017-01-08] MEDS: NICOTINE 14MG/24HR PATCH TRANSDERM SCH (08:41)
[2017-01-08] MEDS: lamoTRIgine 25 MG TAB PO SCH ×2 (08:41→20:23)
[2017-01-08] MEDS: ALBUTEROL INHALER 60 PUFF/8 GM INHALER INHALATION PRN ×3 (08:43→19:16)
[2017-01-08] MEDS: NICOTINE 21MG/24HR PATCH TRANSDERM SCH (09:01)
--- NOTE | 2017-01-08 09:17 | P.PN ---
Progress Note - Text Interval history: The patient is found in the hallway he follows me to an interview room. He reports that he was able to sleep throughout the night with use of Seroquel. He has been tolerating the increase in Lamictal without any side effects. His came up to visit and he reports that was a good visit. He states they discussed some other problems they both cried and have decided to try to work it out. He is still concerned about his living situation. He states that [facility] is willing to put him in a alf bed but he is concerned as to when one is available. He has been participating in groups. Appetite stable. He has no questions or concerns regarding his psychotropic medication. Mental status exam: The patient is alert he seated in his chair he is wearing a ponytail he has a nose ring he has irritable with expanding earrings and eyebrow piercing tattoos are visible on his upper extremities. Eye contact is appropriate speech is fluent spontaneous he is verbose but nonpressured he is directable in the session. He reports his mood is better but we'll endorse intermittent suicidal thoughts. He continues to reiterate that he needs help. There is no evidence of psychosis he is reporting no auditory or visual hallucinations or specific delusions. He does not present hypomanic or manic. There is no tangential thinking loose associations or flight of ideas. Insight and judgment improving. He remains oriented. No abnormal involuntary movements appreciated. He demonstrates no verbal or physical aggressiveness. Plan: The patient' will be continued on his current medication. He anticipates another visit from his abner. We will continue to monitor him for safety. It does appear that he is stabilizing in terms of acute suicide risk. His primary concern is housing upon discharge. Vital signs reviewed.
[2017-01-08] MEDS: QUEtiapine 50 MG TAB PO SCH (20:24)
[2017-01-09 06:25] VITALS: BP 118/71; PULSE 70; RESP 15; TEMP 98.2
--- NOTE | 2017-01-09 09:14 | P.DS ---
Providers Date of admission: 01/06/17 22:26 Expected date of discharge: 01/09/17 Attending physician: Opal Sharpe MD Primary care physician: Sierra Sanchez Hospital Course: ADMISSION HISTORY: Patient discharged on Monday of last week presented on Monday with history of being suicidal and not having a place to live. Efforts were made divert admission but unable to do so, he was admitted voluntarily. Patient had been admitted last week after his reportedly served him with divorce papers. On admission he denied suicidal ideation to the 2 ER physicians who saw him. He was noted to be bright and cheerful throught out his admission last week and when informed of discharge he became angry stating he needed to stay because he did not have a place until January 14, also stated that he would return to the emergency room with a copyholder and be readmitted. Instead he returned with his parents. HOSPITAL COURSE: Patient reported that his visited and they have decided to reconcile. He states that he has been in contact with [facility] and they may be able to provide him with the correction. Patient was again bright, euthymic in groups and with staff, when meeting with mortgage underwriter he was irritable about discharge planning. Stating his employment attorney has called here supposed telling patient we cannot discharge him. Patient states he has been suicidal for 40 years and that this is the shortest hospital stay that he has ever had. Discuss case with treatment team as well as medical records clerk Dr. Nunn who admitted patient, and patient does not need inpatient care, he has a housing situation that is not resolved to his liking. Patient was over heard by staff calling and asking his mother for money, to stay in hotel. No suggestion of psychosis. No immediate danger to self/others Discharge. Discharge diagnoses: Homelessness Marital conflict Malingering Cluster B traits Bipolar, unspecified MENTAL STATUS EXAM: Patient alert and oriented 3, good eye contact, well groomed in street clothing.. Speech normal volume, rate and production. No pressured speech. Coherent, logical and goal directed thought process. No SHANNON, no FOI. No TB/TW/ TI Denied auditory and visual hallucinations. Denied paranoid ideation, delusions or IOR. Memory /intact Cognition average Mood irritable, affect full range decreased intensity, congruent with mood. Denies suicidal ideation, reports thoughts of harming Gene, no plan or intent Insight nil; Judgment grossly intact for treatment purposes Pertinent Studies: none Procedures: none Plan - Discharge Summary New Discharge Prescriptions: New Albuterol Inhaler [Ventolin Hfa Inhaler] 2 puff INHALATION RT-QID PRN puff PRN Reason: Shortness Of Breath Or Wheezing lamoTRIgine [LaMICtal] 25 mg PO BID #28 tab QUEtiapine [SEROquel] 50 mg PO HS #14 tab Continue Albuterol Nebulized [Ventolin Nebulized] 2.5 mg INHALATION RT-Q6H Sodium Chloride [Iantha] 1 spray EA NOSTRIL DAILY PRN PRN Reason: Nasal Congestion Discontinued Albuterol Inhaler [Ventolin Hfa Inhaler] 1 - 2 puff INHALATION RT-Q6H PRN PRN Reason: Shortness Of Breath lamoTRIgine [LaMICtal] 25 mg PO HS #7 tab traZODone HCL [Desyrel] 100 mg PO HS #7 tab Discharge Medication List Albuterol Nebulized [Ventolin Nebulized] 2.5 mg INHALATION RT-Q6H 10/01/16 [ History] Sodium Chloride [Iantha] 1 spray EA NOSTRIL DAILY PRN 01/02/17 [History] Albuterol Inhaler [Ventolin Hfa Inhaler] 2 puff INHALATION RT-QID PRN puff [Rx] QUEtiapine [SEROquel] 50 mg PO HS #14 tab 01/09/17 [Rx] lamoTRIgine [LaMICtal] 25 mg PO BID #28 tab 01/09/17 [Rx] Follow up Appointment(s)/Referral(s): [facility] [Outside] - 01/12/17 10:00 am (Intake 01/12/17 at 10:00 am [email or web address]/ Adria. ) Daniel Esquivel MD [Primary Care Provider] - 1-2 days Discharge Disposition: HOME SELF-CARE
[2017-01-09] MEDS: lamoTRIgine 25 MG TAB PO SCH (09:28)
[2017-01-09] MEDS: NICOTINE 21MG/24HR PATCH TRANSDERM SCH (09:28)
[2017-01-09] MEDS: ALBUTEROL INHALER 60 PUFF/8 GM INHALER INHALATION PRN (11:31)
== END 2017-01-09 13:40 | disposition home or self-care (01) | DRG 885 ==
LOC: EC 18:56 → 3MHU 22:26
PROVIDERS: ADMIT Psychiatry & Neurology Addiction Medicine; ATTEND Psychiatry & Neurology Addiction Medicine
DX: F31.9 Bipolar disorder, unspecified (principal); R45.851 Suicidal ideations; E11.9 Type 2 diabetes mellitus without complications; J45.909 Unspecified asthma, uncomplicated; G47.9 Sleep disorder, unspecified; F17.200 Nicotine dependence, unspecified, uncomplicated; Z63.5 Disruption of family by separation and divorce; Z76.5 Malingerer [conscious simulation]; Z91.018 Allergy to other foods; Z79.899 Other long term (current) drug therapy; Z59.0 Homelessness; Z87.2 Personal history of diseases of the skin and subcutaneous tissue; Z91.5 Personal history of self-harm; Z62.819 Personal history of unspecified abuse in childhood; Z86.39 Personal history of other endocrine, nutritional and metabolic disease
CPT/HCPCS: 82075; 94640; 99285